=== PATIENT | female | born 1990 | race American Indian/Alaskan Native ===

== ENCOUNTER 2016-05-23 16:14 | Emergency (ER) | payer SELFPAY ==
[2016-05-23 17:06] LABS: Bilirubin,Urine NEG (Negative); Blood,Urine MOD (Negative); Ketones,Urine NEG (Negative); Leukocyte Esterase,Urine NEG (Negative); Mucus,Urine FEW /HPF; Nitrite,Urine NEG (Negative); Urobilinogen,Urine < 2.0 mg/dL (<2.0); WBC,Urine < 1.0 /HPF (0.0-6.0)
--- NOTE | 2016-05-23 17:17 | Emergency Department Report ---
Chief Complaint: Abdominal Pain Stated Complaint: ABD PAIN/IRREGULAR CYCLE/HEADACHES Time Seen by Provider: 05/23/16 17:12 - HPI History of Present Illness: PT states she used a douche 2 weeks ago. PT states after she used the douche, she had some vaginal discharge. PT states her period was shorter this month. PT states she has also had unprotected sex. - ROS Review of Systems: + discharge - dysuria + headaches (08/18) +abd pain (11/18) - Exam Vital Signs: Vital Signs 05/23/16 16:39 Temperature 98.7 F Pulse Rate 66 Respiratory 18 Rate Blood Pressure 145/88 O2 Sat by Pulse 97 Oximetry Physical Exam: pt looks well, non toxic gcs 15, steady gait MSE screening note: Focused history and physical exam performed. Due to findings the following was ordered: pt aware of available labs, plan to room for exam ED Disposition for MSE Condition: Stable Instructions: Abdominal Pain (ED)
[2016-05-23] MEDS ORDERED: TORADOL IM ONE (21:21)
--- NOTE | 2016-05-23 21:23 | Emergency Department Report ---
HPI - General Chief Complaint: Abdominal Pain Time Seen by Provider: 05/23/16 17:12 - HPI HPI: This is a 26-year-old -[place] female who drove herself in to be seen today for 2 complaints. First the patient has been having a right in front sided headache that she calls a migraine that is intermittent and currently low intensity at about a 2 out of 10. While she uses the term migraine, the patient does not have any history of migraine headaches. She denies any vision change, photophobia, slurred speech or any neurological deficits. The patient also complains of some intermittent abdominal discomfort. She currently does not have any abdominal pain. She is on her menstrual cycle and says that slowing down on day 3, when it usually lasts a week. These 2 things together she has concern for a possible urinary tract infection as the patient says that she is often using a douche product. Patient took some Excedrin for her headache yesterday. She does not have any past medical history. She does not have a primary care doctor. No recent travel or sick contacts at home. ED Past Medical Hx - Past Medical History Previous Medical History?: No - Surgical History Past Surgical History?: No - Social History Smoking Status: Never Smoker Substance Use Type: Alcohol, Non Opiate Pain - Medications Home Medications: Home Medications Medication Instructions Recorded Confirmed Last Taken Type No Known Home Medications [No 05/23/16 05/23/16 Unknown History Reported Home Medications] ED Review of Systems ROS: Stated complaint: ABD PAIN/IRREGULAR CYCLE/HEADACHES Other details as noted in HPI Comment: All other systems reviewed and negative Constitutional: denies: chills, fever Eyes: denies: eye pain, eye discharge, vision change ENT: denies: ear pain, throat pain Respiratory: denies: cough, shortness of breath, wheezing Cardiovascular: denies: chest pain, palpitations Gastrointestinal: abdominal pain (intermittent, currently resolved). denies: nausea, vomiting Genitourinary: denies: urgency, dysuria, discharge Musculoskeletal: denies: back pain, joint swelling, arthralgia Skin: denies: rash, lesions Neurological: headache. denies: weakness, numbness Physical Exam - Physical Exam Vital Signs: Vital Signs 05/23/16 05/23/16 16:39 21:16 Temperature 98.7 F 98.2 F Pulse Rate 66 75 Respiratory 18 18 Rate Blood Pressure 145/88 Blood Pressure 132/76 [Left] O2 Sat by Pulse 97 100 Oximetry Physical Exam: GENERAL: The patient is well-developed well-nourished. HEENT: Normocephalic. Atraumatic. Extraocular motions are intact. Patient has moist mucous membranes. Pupils equal reactive to light bilaterally. No nystagmus. NECK: Supple. Trachea is midline. CHEST/LUNGS: Clear to auscultation. There is no respiratory distress noted. HEART/CARDIOVASCULAR: Regular. There is no tachycardia. There is no gallop rub or murmur. ABDOMEN: Abdomen is soft, nontender. Patient has normal bowel sounds. There is no abdominal distention. SKIN: Skin is warm and dry. NEURO: The patient is awake, alert, and oriented. The patient is cooperative. The patient has no focal neurologic deficits. The patient has normal speech. MUSCULOSKELETAL: There is no tenderness or deformity. There is no limitation range of motion. There is no evidence of acute injury. ED Course Vital Signs 05/23/16 05/23/16 16:39 21:16 Temperature 98.7 F 98.2 F Pulse Rate 66 75 Respiratory 18 18 Rate Blood Pressure 145/88 Blood Pressure 132/76 [Left] O2 Sat by Pulse 97 100 Oximetry ED Medical Decision Making - Medical Decision Making This is a 26 year-old female presents the emergency department with complaint of low-grade intermittent headaches. She also complains of some abdominal pain with a short menstrual cycle, however the abdominal pain is completely resolved without any intervention. She denies any dysuria, vaginal discharge. Patient's vital signs are stable throughout her ED course including being afebrile. Patient's urinalysis does not show any urinary tract infection and the patient is not . The patient will be given a shot of Toradol for her headache. Since the patient's headache is of low intensity and was without any neurological deficits, I do not feel that the patient needs any CT imaging of the head as the risks outweigh the benefits at this time. However if the patient develops any worsening of her headache or develops any neurological deficits she will return immediately for CT imaging of the head. Patient's abdominal pain has completely resolved prior to presentation. She has no urinary tract infection and the patient is not . Since the patient does not have any current pain, does not have fever, nausea or vomiting and does not have any vaginal discharge, I do not feel a pelvic exam is necessary. Patient has good insurance through the [employer] system and has been encouraged to follow-up with both a primary care doctor and [employer]. However she has been encouraged to go to the closest hospital or return here for further evaluation and treatment if she develops any worsening of her symptoms or any acute distress. She understands and agrees the plan. - Differential Diagnosis tension headache, migraine, menstrual cramping, UTI, Critical Care Time: No Critical care attestation.: If time is entered above; I have spent that time in minutes in the direct care of this critically ill patient, excluding procedure time. ED Disposition Clinical Impression: Headache Qualifiers: Headache type: unspecified Headache chronicity pattern: episodic headache Intractability: not intractable Qualified Code(s): R51 - Headache Abdominal pain Qualifiers: Abdominal location: unspecified location Qualified Code(s): R10.9 - Unspecified abdominal pain Disposition: DISCHARGED TO HOME OR SELFCARE Is pt being admited?: No Condition: Good Instructions: Abdominal Pain (ED), Acute Headache (ED) Additional Instructions: These follow-up with a primary care doctor and [employer]GER through the [employer] system. Return to the emergency department with any worsening of her symptoms, return if your abdominal pain, or any acute distress. Referrals: PRIMARY MD CHERRY [Primary Care Provider] - 3-5 Days Time of Disposition: 21:25
[2016-05-23 22:05] VITALS: BP 162/92
== END 2016-05-23 22:00 | disposition home or self-care (01) ==
LOC: ED 16:14
DX: R51 Headache (principal); R10.9 Unspecified abdominal pain
CPT/HCPCS: 81001; 81025; 96372; 99283; J1885

== ENCOUNTER 2017-09-23 18:19 | Emergency (ER) | payer OTHER ==
[2017-09-23 18:26] VITALS: BP 164/78
[2017-09-23] MEDS ORDERED: MOTRIN PO ONE (23:41)
[2017-09-23] MEDS ORDERED: TESSALON PERLES PO ONE (23:41)
[2017-09-23] MEDS ORDERED: BENADRYL PO ONE (23:43)
--- NOTE | 2017-09-23 23:45 | Emergency Department Report ---
- General Chief Complaint: Upper Respiratory Infection Stated Complaint: PAIN/LIGHT HEADED Time Seen by Provider: 09/23/17 23:41 Source: patient Mode of arrival: Ambulatory Limitations: No Limitations - History of Present Illness Initial Comments: 27 y/patient denies any past medical history currently takes no medication has no known drug allergies 0 -[place] female comes in complaint of sore throat nasal congestion and body aches cough 4 days. Patient reports that she is vomited and intermittent nausea. Patient reports that she took Excedrin last dose was 9 AM today. Patient is followed by [facility] and has not followed up with her primary care provider. MD Complaint: fever, cough, sore throat, nasal congestion -: days(s) (4) Consistency: intermittent Improves With: nothing Context: sick contacts Associated Symptoms: fever (low-grade), chills, rhinorrhea, nasal congestion, sore throat, nausea (intermittent), vomiting (times one today) - Related Data Previous Rx's Medication Instructions Recorded Last Taken Type Benzonatate [Tessalon Perles] 100 mg PO Q8HR #15 capsule 09/23/17 Unknown Rx Ibuprofen [Motrin 800 MG tab] 800 mg PO Q8HR #30 tablet 09/23/17 Unknown Rx Allergies Allergy/AdvReac Type Severity Reaction Status Date / Time No Known Allergies Allergy Unverified 05/23/16 16:39 ED Review of Systems ROS: Stated complaint: PAIN/LIGHT HEADED Other details as noted in HPI Constitutional: chills, fever ENT: throat pain, congestion Respiratory: cough Cardiovascular: denies: chest pain, palpitations Endocrine: no symptoms reported Gastrointestinal: nausea, vomiting Genitourinary: denies: urgency, dysuria, discharge Musculoskeletal: denies: back pain, joint swelling, arthralgia Skin: denies: rash, lesions Neurological: denies: headache, weakness, paresthesias Psychiatric: denies: anxiety, depression Hematological/Lymphatic: denies: easy bleeding, easy bruising ED Past Medical Hx - Past Medical History Previous Medical History?: No - Surgical History Past Surgical History?: No - Social History Smoking Status: Never Smoker Substance Use Type: None - Medications Home Medications: Home Medications Medication Instructions Recorded Confirmed Last Taken Type Benzonatate [Tessalon Perles] 100 mg PO Q8HR #15 capsule 09/23/17 Unknown Rx Ibuprofen [Motrin 800 MG tab] 800 mg PO Q8HR #30 tablet 09/23/17 Unknown Rx ED Physical Exam - General Limitations: No Limitations General appearance: alert, in no apparent distress - Head Head exam: Present: atraumatic, normocephalic - Eye Eye exam: Present: normal appearance - Expanded ENT Exam Expanded Ear exam: Present: normal external inspection Throat exam: Positive: tonsillar erythema, tonsillomegaly. Negative: tonsillar exudate - Neck Neck exam: Present: full ROM, lymphadenopathy - Respiratory Respiratory exam: Present: normal lung sounds bilaterally. Absent: respiratory distress - Cardiovascular Cardiovascular Exam: Present: regular rate, normal rhythm. Absent: systolic murmur, diastolic murmur, rubs, gallop - GI/Abdominal GI/Abdominal exam: Present: soft, normal bowel sounds - Neurological Exam Neurological exam: Present: alert, oriented X3 - Psychiatric Psychiatric exam: Present: normal affect, normal mood - Skin Skin exam: Present: warm, dry, intact, normal color. Absent: rash ED Course Vital Signs 09/23/17 18:23 Temperature 99.0 F Pulse Rate 94 H Respiratory 18 Rate Blood Pressure 164/78 O2 Sat by Pulse 100 Oximetry ED Medical Decision Making - Medical Decision Making She has been evaluated by this provider fast track. Ibuprofen, Tessalon Perles PERRL, Benadryl has been ordered for patient's pain management. Critical care attestation.: If time is entered above; I have spent that time in minutes in the direct care of this critically ill patient, excluding procedure time. ED Disposition Clinical Impression: Cold Disposition: DC-01 TO HOME OR SELFCARE Is pt being admited?: No Does the pt Need Aspirin: No Condition: Stable Instructions: Antihistamine/Antitussive/Decongestant (By mouth), Cold Symptoms (ED) Additional Instructions: Please take pain medication and cough medication as prescribed. You can get over -the-counter Sudafed for nasal congestion. If her symptoms persist or gets worse please follow up with her primary care provider. Prescriptions: Benzonatate [Tessalon Perles] 100 mg PO Q8HR #15 capsule Ibuprofen [Motrin 800 MG tab] 800 mg PO Q8HR #30 tablet Referrals: PRIMARY CARE, [Primary Care Provider] - 3-5 Days Forms: Work/School Release Form(ED)
== END 2017-09-24 00:25 | disposition home or self-care (01) ==
LOC: ED 18:19
DX: J00 Acute nasopharyngitis [common cold] (principal); R11.2 Nausea with vomiting, unspecified
CPT/HCPCS: 99282